=== PATIENT | female | born 1985 | race African-American/Black ===

== ENCOUNTER 2022-11-09 08:21 | Emergency (ER) | payer MEDICAID ==
[~2022-11-09] VITALS: Ht 170.2 cm; Wt 72.0 kg
[2022-11-09 08:30] VITALS: PULSE 99
[2022-11-09 08:31] VITALS: BP 113/65; RESP 18; TEMP 98.5; O2SAT 98
[2022-11-09] MEDS ORDERED: HYDR453.3 TP (08:48)
== END 2022-11-09 08:59 | disposition home or self-care (01) ==
LOC: ER 08:21
DX: R21 Rash and other nonspecific skin eruption (principal); J45.909 Unspecified asthma, uncomplicated
CPT/HCPCS: 81025; 99282

== ENCOUNTER 2023-05-16 15:47 | Emergency (ER) | payer MEDICAID ==
[~2023-05-16] VITALS: Ht 154.9 cm; Wt 72.6 kg
[~2023-05-16 15:47] MED LIST: HYDR453.3 TP
[2023-05-16 16:37] VITALS: BP 109/66; PULSE 75; RESP 16; TEMP 98.3; O2SAT 99
[2023-05-16] MEDS ORDERED: TOPUD MT (18:47)
== END 2023-05-16 19:21 | disposition home or self-care (01) ==
LOC: ER 15:47
DX: M25.512 Pain in left shoulder (principal); J45.909 Unspecified asthma, uncomplicated
CPT/HCPCS: 73030; 81025; 99283

== ENCOUNTER 2023-08-06 23:43 | Emergency (ER) | payer MEDICAID ==
[~2023-08-06] VITALS: Ht 165.1 cm; Wt 78.0 kg
[~2023-08-06 23:43] MED LIST changes: +TOPUD MT
[2023-08-06 23:57] VITALS: TEMP 97.9; O2SAT 98
[2023-08-07 00:29] LABS: CLARITY URINE CLEAR (CLEAR); COLOR URINE YELLOW (YELLOW); GLUCOSE URINE NEGATIVE (NEGATIVE); KETONES URINE NEGATIVE (NEGATIVE); LEUKOCYTE ESTERASE URINE TRACE (NEGATIVE); NITRITE URINE NEGATIVE (NEGATIVE); OCCULT BLOOD URINE NEGATIVE (NEGATIVE); PROTEIN URINE NEGATIVE (NEGATIVE); SPECIFIC GRAVITY URINE 1.009 (1.005-1.030); UROBILINOGEN URINE 0.2 E.U./dL (0.2-1.0)
[2023-08-07 00:40] LABS: BASOPHILS % 0.4 % (0.0-2.0); EOSINOPHILS % 9.3 % (0.0-5.0); HEMATOCRIT. 40.7 % (36.0-48.0); HEMOGLOBIN. 13.5 g/dL (12.0-16.0); LYMPHOCYTES % 37.2 % (20.0-50.0); MEAN CORPUSCULAR HEMOGLOBIN 30.9 pg (28.0-32.0); MEAN CORPUSCULAR VOLUME 93.4 fL (81.0-99.0); MEAN PLATELET VOLUME 8.3 fl (7.4-10.4); MONOCYTES % 5.7 % (2.0-8.0); NEUTROPHILS % 47.4 % (40.0-76.0); PLATELET 282 x1000/uL (130-400); RED BLOOD CELL COUNT 4.36 mill/uL (4.2-5.4); RED CELL DISTRIBUTION WIDTH 13.9 % (11.6-14.6); WHITE BLOOD COUNT 7.6 x1000/uL (4.5-11.0)
[2023-08-07 00:48] LABS: CHLORIDE 103 mEq/L (98-107); POTASSIUM 3.7 mEq/L (3.5-5.1); SODIUM 138 mEq/L (136-145)
[2023-08-07 00:49] LABS: CARBON DIOXIDE 26 mEq/L (21-32)
[2023-08-07 00:50] LABS: CALCIUM 9.4 mg/dL (8.7-10.4)
[2023-08-07 00:54] LABS: CREATININE 0.7 mg/dL (0.6-1.0); GLUCOSE 94 mg/dL (70-105)
[2023-08-07 00:55] LABS: UREA NITROGEN BLOOD 11 mg/dL (9-23)
[2023-08-07 00:56] LABS: ALANINE AMINOTRANSFERASE 14 IU/L (10-49); ALBUMIN 4.2 g/dL (3.2-4.8); ASPARTATE AMINOTRANSFERASE 11 IU/L (<34)
[2023-08-07 00:57] LABS: BILIRUBIN TOTAL 0.3 mg/dL (0.1-1.0)
[2023-08-07 02:15] VITALS: BP 109/72; PULSE 85; RESP 18
[2023-08-07] MEDS: IBUPROFEN 400MG TABLET PO ONE (02:15)
[2023-08-07 02:32] LABS: SQUAMOUS EPITHELIAL CELL URINE 1+ /lpf (RARE/1+)
[2023-08-07 02:34] LABS: RBC URINE 0-2 /hpf (0-2)
[2023-08-07 02:36] LABS: BACTERIA URINE TRACE
== END 2023-08-07 02:43 | disposition home or self-care (01) ==
LOC: ER 23:56
DX: R10.9 Unspecified abdominal pain (principal); B34.9 Viral infection, unspecified; J45.909 Unspecified asthma, uncomplicated
CPT/HCPCS: 36415; 80053; 81003; 81025; 85025; 99283

== ENCOUNTER 2023-12-08 11:42 | Emergency (ER) | payer MEDICAID ==
[~2023-12-08] VITALS: Ht 167.6 cm; Wt 78.0 kg
[2023-12-08 11:46] VITALS: O2SAT 100
[2023-12-08 11:58] VITALS: BP 115/68; PULSE 85; RESP 16; TEMP 98.7; O2SAT 100
[2023-12-08] MEDS: DIPHENHYDRAMINE 25MG CAPSULE PO ONE (12:46)
[2023-12-08] MEDS: FAMOTIDINE 20MG TABLET PO ONE (12:46)
== END 2023-12-08 12:47 | disposition left against medical advice (07) ==
LOC: ER 11:42
DX: J02.9 Acute pharyngitis, unspecified (principal); J45.909 Unspecified asthma, uncomplicated
CPT/HCPCS: 99281; Q0163